=== PATIENT | male | born 1990 | race Asian ===

== ENCOUNTER 2020-08-01 06:07 | Emergency (ER) | payer OTHER ==
[~2020-08-01] VITALS: Ht 188 cm; Wt 108.9 kg
[2020-08-01 06:25] VITALS: TEMP 98.1
[2020-08-01 07:49] VITALS: BP 138/74
== END 2020-08-01 07:49 | disposition home or self-care (01) ==
LOC: ED 06:07
DX: G44.209 Tension-type headache, unspecified, not intractable (principal)
CPT/HCPCS: 36415; 96374; 99284; J1885